=== PATIENT | male | born 1960 | race Caucasian/White ===

== ENCOUNTER → 2019-12-24 13:20 | Outpatient (BNVA) | payer OTHER, SELFPAY | PROVIDERS: PCP Family Medicine; Referring Provider Family Medicine; Visit Provider Urology | DX: Z76.89 Persons encountering health services in other specified circumstances (principal) ==

== ENCOUNTER → 2020-04-26 13:13 | Outpatient (BNVA) | payer OTHER, SELFPAY | PROVIDERS: PCP Family Medicine; Referring Provider Family Medicine; Visit Provider Urology | DX: N41.9 Inflammatory disease of prostate, unspecified (principal); N40.1 Benign prostatic hyperplasia with lower urinary tract symptoms; N13.8 Other obstructive and reflux uropathy | CPT/HCPCS: 51798; 81002 ==

== ENCOUNTER → 2020-05-02 13:11 | Outpatient (BNVA) | payer OTHER, SELFPAY | PROVIDERS: PCP Family Medicine; Visit Provider Urology ==

== ENCOUNTER → 2021-11-14 10:58 | Outpatient (BNVA) | payer OTHER, SELFPAY | PROVIDERS: PCP Family Medicine; Visit Provider Urology | DX: N40.1 Benign prostatic hyperplasia with lower urinary tract symptoms (principal); N13.8 Other obstructive and reflux uropathy; N41.9 Inflammatory disease of prostate, unspecified | CPT/HCPCS: 51798 ==

== ENCOUNTER 2022-11-19 11:30 | Outpatient (AMB) | payer OTHER, SELFPAY ==
--- NOTE | 2022-11-19 11:40 | A.OFFVIS_ITS ---
Intake Intake Visit Reasons: 1Y PVR Intake Note: Patient is present for PVR Urology Med: alfuzosin Antibiotic Allergy:None Blood Thinner: None Pharmacy: [facility] PVR: 0 Allergies No Known Allergies Allergy (Verified 11/19/22 11:44) Medication List - Last Reconciled 11/19/22 by Andrew Baeza MD alfuzosin ER 10 mg PO DAILY 90 days lovastatin mg PO methylprednisolone 16 mg PO DAILY metoprolol succinate ER 25 mg PO DAILY metronidazole 500 mg PO BID 7 days sertraline 50 mg PO DAILY tadalafil 5 mg PO DAILY 90 days HPI HPI Comments History of Present Illness Details Cong is a pleasant Malay male. He is a patient of Dr. Lo. He seen for following urologic conditions - prostatitis - lower urinary tract symptoms - erectile dysfunction Continues with relatively good bladder emptying Happy with alfuzosin No recurrence of prostatitis Erectile dysfunction Does have mild cardiac CAD Trial Cialis Prostatitis/CPPS: Here for follow-up Prior therapy for pelvic floor therapy notes from [facility]. Complicated patient Prior treatment for Trichomonas with metronidazole Prior Microgen negative They present for evaluation of, chronic prostatitis, chronic pelvic pain syndrome - started January 2019 - has been through multiple rounds of antibiotics - pain towards penile glans. He is currently being treated with antibiotics. Symptoms have been present Initial episode started January 2019 Does report having had an episode in his 20s. Severity of the symptom Prostate Symptom Score, moderate, have been intermittent, and are progressive. Pain is present perineum, with ejaculation. Prostatitis was diagnosed January 2019. Type of prostatitis II - chronic bacterial. [facility] Medical History Chronic prostatitis Bladder outlet obstruction Review of Systems Const Denies chills and Denies fever(s) Card Reports no additional complaints and Denies syncope Resp Denies cough GI Denies abdominal pain and Denies heartburn Reports as per HPI and Denies change in libido Neuro Denies syncope Psych Denies change in libido Endo Denies change in libido Physical Exam Const General: cooperative, healthy appearing, comfortable and no acute distress Orientation/consciousness: patient oriented x3 HEENT Face and sinus: Yes normal facial exam Mouth: moist mucous membranes Neck Neck: Yes normal visual inspection, Yes full ROM and Yes trachea midline Chest Chest palpation & inspection: normal inspection of the chest Resp Effort & Inspection: normal respiratory effort, able to speak in complete sentences and no respiratory distress GI Inspection: Yes normal to inspection Back/Spine/Pelvis Cervical Spine: normal cervical lordosis Thoracic/Lumbar Spine: thoracic and lumbar spine normal to inspection Skin General skin exam: no rashes or lesions noted Neuro General: patient oriented x3, gait normal, tone normal and moves all extremities Extrem General: Yes normal to inspection and Yes capillary refill normal Results AMB Urinalysis, Automated UA Leukoctes 0 Lamar/uL Last Edit by Katelynn Arrieta [facility] on 11/19/22 11:56 UA Nitrite Negative Last Edit by Katelynn Arrieta A on 11/19/22 11:56 UA Urobilinogen 0.2 mg/dL Last Edit by Katelynn Arrieta A on 11/19/22 11:5 6 UA Protein 0 mg/dL Last Edit by Katelynn Arrieta A on 11/19/22 11:56 UA pH 5.5 Last Edit by Katelynn Arrieta [facility] on 11/19/22 11:56 UA Blood 0 Luis Manuel/uL Last Edit by Katelynn Arrieta [facility] on 11/19/22 11:56 UA Specific Marion 1.025 Last Edit by Katelynn Arrieta [facility] on 11/19/22 11: 56 UA Ketone Negative Last Edit by Katelynn Arrieta [facility] on 11/19/22 11:56 UA Bilirubin 0 mg/dL Last Edit by Katelynn Arrieta A on 11/19/22 11:56 UA Glucose 0 mg/dL Last Edit by Katelynn Arrieta [facility] on 11/19/22 11:56 Results Reviewed Results Reviewed: Laboratory Last Values Urine pH (Auto) 5.5 11/19/22 11:44 Specific Marion (Auto) 1.025 11/19/22 11:44 Urine Protein (Auto) 0 mg/dL 11/19/22 11:44 Glucose (UA)(Auto) 0 mg/dL 11/19/22 11:44 Urine Ketones (Auto) Negative 11/19/22 11:44 Urine Blood (Auto) 0 Luis Manuel/uL 11/19/22 11:44 Urine Nitrite (Auto) Negative 11/19/22 11:44 Urine Bilirubin (Auto) 0 mg/dL 11/19/22 11:44 Urine Urobilinogen (Auto) 0.2 mg/dL 11/19/22 11:44 Leukocyte Esterase (Auto) 0 Lamar/uL 11/19/22 11:44 Assessment & Plan Assessment & Plan (1) Erectile dysfunction: Code(s): N52.9 - Male erectile dysfunction, unspecified Qualifiers: Erectile dysfunction type: vasculogenic Vasculogenic erectile dysfunction type: due to arterial insufficiency Qualified Code(s): N52.01 - Erectile dysfunction due to arterial insufficiency (2) BPH w urinary obs/LUTS: Code(s): N40.1 - Benign prostatic hyperplasia with lower urinary tract symptoms; N13.8 - Other obstructive and reflux uropathy (3) Prostatitis: Code(s): N41.9 - Inflammatory disease of prostate, unspecified Qualifiers: Prostatitis type: chronic Qualified Code(s): N41.1 - Chronic prostatitis Plan Trial daily tadalafil Encourage activity Orders: Orders AMB Urinalysis Automated Today Z13.9 - Encounter for screening, unspecified AMB Post Void Residual by ultrasound Today N13.8 - Other obstructive and reflux uropathy, N40.1 - Benign prostatic hyperplasia with lower urinary tract symptoms Medications: New tadalafil BIN [id number] [facility] Group DR33 5 mg PO DAILY 90 days 90 tabs 0RF sexual activity N52.9 - Male erectile dysfunction, unspecified Patient Instructions: Imaging studies, laboratory and physical exam results were discussed and reviewed in detail. No major barriers to patient understanding were identified. An opportunity to ask questions regarding the treatment plan was provided. All questions were answered. The patient expressed understanding and agreement with the above treatment plan. The patient is aware they should contact our office by phone for worsening of their current condition or the appearance of new urologic symptoms. Compliance is encouraged with any medications and followup testing that is ordered. It is a privilege to participate in the urologic care of your patient. If you have any questions or concerns regarding treatment for the above conditions, or other urologic issues, please do not hesitate to contact me. The office telephone contact is [phone]. This note is constructed using voice recognition software. While every effort has been made to ensure accuracy manager specialty errors may have been included. Yours sincerely, Dr Andrew Baeza MD, [facility] - Urology Providers of Expert, Compassionate Care for the Genitourinary System Coding Level of Care Code Est Pt Level 4 (85420) Diagnoses Erectile dysfunction due to arterial insufficiency N52.01 Erectile dysfunction type: vasculogenic Vasculogenic erectile dysfunction type: due to arterial insufficiency BPH w urinary obs/LUTS N40.1; N13.8 Chronic prostatitis N41.1 Prostatitis type: chronic
== END 2022-11-19 12:24 | disposition home or self-care (01) ==
PROVIDERS: PCP Family Medicine; Visit Provider Urology
DX: N52.01 Erectile dysfunction due to arterial insufficiency (principal); N40.1 Benign prostatic hyperplasia with lower urinary tract symptoms; N13.8 Other obstructive and reflux uropathy; N41.1 Chronic prostatitis; Z13.9 Encounter for screening, unspecified
CPT/HCPCS: 99214

== ENCOUNTER → 2022-11-19 11:30 | Outpatient (BNVA) | payer OTHER, SELFPAY | PROVIDERS: Visit Provider Urology | DX: N40.1 Benign prostatic hyperplasia with lower urinary tract symptoms (principal); N13.8 Other obstructive and reflux uropathy; N52.01 Erectile dysfunction due to arterial insufficiency; N41.1 Chronic prostatitis | CPT/HCPCS: 81003 ==

== ENCOUNTER 2023-02-21 11:19 | Outpatient (AMB) | payer OTHER, SELFPAY ==
--- NOTE | 2023-02-21 11:30 | MHC.OFFVIS ---
Intake Intake Visit Reasons: 3 month follow up Intake Note: Patient is Present for Follow Up Urology Medication: Alfuzosin, Tadalafil Antibiotic Allergies: None Blood Thinners:None Allergies No Known Allergies Allergy (Verified 02/21/23 11:31) Medication List - Last Reconciled 02/21/23 by Andrew Baeza MD alfuzosin ER 10 mg PO DAILY 90 days lovastatin mg PO methylprednisolone 16 mg PO DAILY metoprolol succinate ER 25 mg PO DAILY metronidazole 500 mg PO BID 7 days sertraline 50 mg PO DAILY tadalafil 5 mg PO DAILY 90 days HPI HPI Comments History of Present Illness Details Cong is a pleasant [place] male. He is a patient of Dr. Lo. He seen for following urologic conditions - prostatitis - lower urinary tract symptoms - erectile dysfunction Telemedicine Evaluation 15 min Consultation [employer] Any Video attempted Continues with relatively good bladder emptying Happy with alfuzosin No recurrence of prostatitis Erectile dysfunction Does have mild cardiac CAD Trial Cialis daily with on demand Prostatitis/CPPS: Here for follow-up Prior therapy for pelvic floor therapy notes from [facility]. Complicated patient Prior treatment for Trichomonas with metronidazole Prior Microgen negative They present for evaluation of, chronic prostatitis, chronic pelvic pain syndrome - started January 2019 - has been through multiple rounds of antibiotics - pain towards penile glans. He is currently being treated with antibiotics. Symptoms have been present Initial episode started January 2019 Does report having had an episode in his 20s. Severity of the symptom Prostate Symptom Score, moderate, have been intermittent, and are progressive. Pain is present perineum, with ejaculation. Prostatitis was diagnosed January 2019. Type of prostatitis II - chronic bacterial. [facility] Medical History Chronic prostatitis Bladder outlet obstruction Review of Systems Const All systems reviewed & are unremarkable except as noted in HPI and below Reports no additional complaints Resp Reports no additional complaints GI Reports no additional complaints Reports as per HPI Musc Reports no additional complaints Physical Exam Telemedicine evaluation Appropriate responses Regular breathing rate and rhythm HEENT Head: Yes normal to inspection Ears: hearing grossly normal bilaterally Eyes General: appearance normal, both eyes and all related structures Neck Neck: Yes normal visual inspection Chest Chest palpation & inspection: normal inspection of the chest Resp Effort & Inspection: normal respiratory effort and able to speak in complete sentences Assessment & Plan Assessment & Plan (1) Erectile dysfunction: Code(s): N52.9 - Male erectile dysfunction, unspecified Qualifiers: Erectile dysfunction type: vasculogenic Vasculogenic erectile dysfunction type: due to arterial insufficiency Qualified Code(s): N52.01 - Erectile dysfunction due to arterial insufficiency (2) BPH w urinary obs/LUTS: Code(s): N40.1 - Benign prostatic hyperplasia with lower urinary tract symptoms; N13.8 - Other obstructive and reflux uropathy (3) Prostatitis: Code(s): N41.9 - Inflammatory disease of prostate, unspecified Qualifiers: Prostatitis type: chronic Qualified Code(s): N41.1 - Chronic prostatitis Plan Six month follow-up office Medications: New tadalafil as needed 10 mg PO ONCE PRN 30 tabs 1RF sexual activity 30 days N52.01 - Erectile dysfunction due to arterial insufficiency, N52.9 - Male erectile dysfunction, unspecified Patient Instructions: Imaging studies, laboratory and physical exam results were discussed and reviewed in detail. No major barriers to patient understanding were identified. An opportunity to ask questions regarding the treatment plan was provided. All questions were answered. The patient expressed understanding and agreement with the above treatment plan. The patient is aware they should contact our office by phone for worsening of their current condition or the appearance of new urologic symptoms. Compliance is encouraged with any medications and followup testing that is ordered. It is a privilege to participate in the urologic care of your patient. If you have any questions or concerns regarding treatment for the above conditions, or other urologic issues, please do not hesitate to contact me. The office telephone contact is [phone]. This note is constructed using voice recognition software. While every effort has been made to ensure accuracy sugar house supervisor errors may have been included. Yours sincerely, Dr Andrew Baeza MD, [facility] - Urology Providers of Expert, Compassionate Care for the Genitourinary System Telehealth Telehealth Location of provider rendering services: practice address Location of patient: address on file Patient Identification confirmed using: Name, : Yes Telehealth method: voice only Patient verbally consented to treatment: Yes Patient verbally consented to billing insurance company: Yes Patient informed of any privacy concerns related to visit: Yes Coding Level of Care Code Tele Est Pt Level 4 (69990) Diagnoses Erectile dysfunction due to arterial insufficiency N52.01 Erectile dysfunction type: vasculogenic Vasculogenic erectile dysfunction type: due to arterial insufficiency BPH w urinary obs/LUTS N40.1; N13.8 Chronic prostatitis N41.1 Prostatitis type: chronic
== END 2023-02-21 12:16 | disposition home or self-care (01) ==
LOC: HO.HUSH 11:19
PROVIDERS: PCP Family Medicine; Visit Provider Urology
DX: N52.01 Erectile dysfunction due to arterial insufficiency (principal); N40.1 Benign prostatic hyperplasia with lower urinary tract symptoms; N13.8 Other obstructive and reflux uropathy; N41.1 Chronic prostatitis
CPT/HCPCS: 99214

== ENCOUNTER → 2023-02-21 11:19 | Outpatient (BNVA) | payer OTHER, SELFPAY | PROVIDERS: PCP Family Medicine; Visit Provider Urology ==

== ENCOUNTER 2023-08-26 11:42 | Outpatient (AMB) | payer OTHER, SELFPAY ==
--- NOTE | 2023-08-26 11:38 | A.OFFVIS_ITS ---
Intake Visit Reasons: 6m follow up Intake Note: Patient is present for 6 month f/u Urology Medication:tadalafil,metronidazole,methylprednisolone,alfuzosin Antibiotic Allergy:none Blood Thinner:none Bull Float Finisher Required: No Allergies No Known Allergies Allergy (Verified 08/26/23 11:40) Medication List - Last Reconciled 08/26/23 by Andrew Baeza MD alfuzosin ER 10 mg PO DAILY 90 days lovastatin mg PO methylprednisolone 16 mg PO DAILY metoprolol succinate ER 25 mg PO DAILY metronidazole 500 mg PO BID 7 days sertraline 50 mg PO DAILY tadalafil 10 mg PO ONCE PRN 30 days tadalafil 5 mg PO DAILY 90 days HPI Comments Details: Cong is a pleasant Mongolian male. He is a patient of Dr. Lo. He seen for following urologic conditions - prostatitis - lower urinary tract symptoms - erectile dysfunction Telemedicine Evaluation 15 min Consultation [employer] Any Video Continues with relatively good bladder emptying Happy with alfuzosin Erectile dysfunction - good response to daily Cialis Six-month follow-up PSA office Lower urinary tract symptoms On alfuzosin with effective bladder emptying Prostatitis/CPPS: Here for follow-up Prior therapy for pelvic floor therapy notes from [facility]. Complicated patient Prior treatment for Trichomonas with metronidazole Prior Microgen negative They present for evaluation of, chronic prostatitis, chronic pelvic pain syndrome - started January 2019 - has been through multiple rounds of antibiotics - pain towards penile glans. He is currently being treated with antibiotics. Symptoms have been present Initial episode started January 2019 Does report having had an episode in his 20s. Severity of the symptom Prostate Symptom Score, moderate, have been intermittent, and are progressive. Pain is present perineum, with ejaculation. Prostatitis was diagnosed January 2019. Type of prostatitis II - chronic bacterial. [facility] Medical History Chronic prostatitis Bladder outlet obstruction Review of Systems Const All systems reviewed & are unremarkable except as noted in HPI and below Reports no additional complaints Resp Reports no additional complaints GI Reports no additional complaints Reports as per HPI Musc Reports no additional complaints Physical Exam Telemedicine evaluation Appropriate responses Regular breathing rate and rhythm HEENT Head: Yes normal to inspection Ears: hearing grossly normal bilaterally Eyes General: appearance normal, both eyes and all related structures Neck Neck: Yes normal visual inspection Chest Chest palpation & inspection: normal inspection of the chest Resp Effort & Inspection: normal respiratory effort and able to speak in complete sentences Telehealth Telehealth Telehealth Platform: Funding Profiles Location of provider rendering services: practice address Location of patient: address on file Patient Identification confirmed using: Name, : Yes Telehealth method: video Patient verbally consented to treatment: Yes Patient verbally consented to billing insurance company: Yes Patient informed of any privacy concerns related to visit: Yes Minutes spent on Phone/Video with Pt.: 15 Assessment & Plan Assessment & Plan (1) Erectile dysfunction: Code(s): N52.9 - Male erectile dysfunction, unspecified Category: Medical Qualifiers: Erectile dysfunction type: vasculogenic Vasculogenic erectile dysf unction type: due to arterial insufficiency Qualified Code(s): N52.01 - Erectile dysfunction due to arterial insufficiency (2) BPH w urinary obs/LUTS: Code(s): N40.1 - Benign prostatic hyperplasia with lower urinary tract symptoms; N13.8 - Other obstructive and reflux uropathy Category: Medical (3) Prostatitis: Code(s): N41.9 - Inflammatory disease of prostate, unspecified Category: Medical Qualifiers: Prostatitis type: chronic Qualified Code(s): N41.1 - Chronic prostatitis Plan Refill medications Orders: Orders Prostate Specific Antigen 6 Months N13.8 - Other obstructive and reflux uropathy, N40.1 - Benign prostatic hyperplasia with lower urinary tract symptoms Medications: Changed From tadalafil BIN [id number] [facility] Group DR33 5 mg PO DAILY 90 days 90 tabs 1RF sexual activity N 52.9 - Male erectile dysfunction, unspecified To tadalafil 5 mg PO DAILY 90 days 90 tabs 2RF sexual activity N52.9 - Male erectile dysfunction, unspecified Refilled alfuzosin ER administer after the same meal each day 10 mg PO DAILY 90 days 90 tabs 3RF N41.9 - Inflammatory disease of prostate, unspecified tadalafil BIN [id number] [facility] Group DR33 5 mg PO DAILY 90 days 90 tabs 1RF sexual activity N52.9 - Male erectile dysfunction, unspecified alfuzosin ER administer after the same meal each day 10 mg PO DAILY 90 days 90 tabs 3RF N41.9 - Inflammatory disease of prostate, unspecified Patient Instructions: Imaging studies, laboratory and physical exam results were discussed and reviewed in detail. No major barriers to patient understanding were identified. An opportunity to ask questions regarding the treatment plan was provided. All questions were answered. The patient expressed understanding and agreement with the above treatment plan. The patient is aware they should contact our office by phone for worsening of their current condition or the appearance of new urologic symptoms. Compliance is encouraged with any medications and followup testing that is ordered. It is a privilege to participate in the urologic care of your patient. If you have any questions or concerns regarding treatment for the above conditions, or other urologic issues, please do not hesitate to contact me. The office telephone contact is [phone]. This note is constructed using voice recognition software. While every effort has been made to ensure accuracy computer installer errors may have been included. Yours sincerely, Dr Andrew Baeza MD, [facility] - Urology Providers of Expert, Compassionate Care for the Genitourinary System Coding Level of Care Code Tele Est Pt Level 3 (12973) Diagnoses Erectile dysfunction due to arterial insufficiency N52.01 Erectile dysfunction type: vasculogenic Vasculogenic erectile dysfunction type: due to arterial insufficiency BPH w urinary obs/LUTS N40.1; N13.8 Chronic prostatitis N41.1 Prostatitis type: chronic
== END 2023-08-26 12:19 | disposition home or self-care (01) ==
LOC: HO.HUSH 11:42
PROVIDERS: PCP Family Medicine; Visit Provider Urology
DX: N52.01 Erectile dysfunction due to arterial insufficiency (principal); N40.1 Benign prostatic hyperplasia with lower urinary tract symptoms; N13.8 Other obstructive and reflux uropathy; N41.1 Chronic prostatitis
CPT/HCPCS: 99213

== ENCOUNTER → 2023-08-26 11:42 | Outpatient (BNVA) | payer OTHER, SELFPAY | PROVIDERS: PCP Family Medicine; Visit Provider Urology ==

== ENCOUNTER 2024-03-24 15:05 | Outpatient (AMB) | payer OTHER, SELFPAY ==
--- NOTE | 2024-03-24 15:09 | A.OFFVIS_ITS ---
Intake Visit Reasons: PSA/PVR(Set) Intake Note: Patient is present for PSA/PVR Urology Medication:TADALAFIL,ALFUZOSIN Antibiotic Allergy:NONE Blood Thinner:NONE Todays PVR:0ML'S Cpr Instructor Required: No Allergies No Known Allergies Allergy (Verified 03/24/24 15:10) HPI Comments Details: Cong is a pleasant Spanish male. He is a patient of Dr. Lo. He seen for following urologic conditions - prostatitis - lower urinary tract symptoms - erectile dysfunction Six-month follow-up Low PVR Remains on combination of alfuzosin and Cialis Erectile dysfunction - good response to daily Cialis PSA 0.8 12 month follow-up Lower urinary tract symptoms On alfuzosin with effective bladder emptying Prostatitis/CPPS: Here for follow-up Prior therapy for pelvic floor therapy notes from [facility]. Complicated patient Prior treatment for Trichomonas with metronidazole Prior Microgen negative They present for evaluation of, chronic prostatitis, chronic pelvic pain syndrome - started January 2019 - has been through multiple rounds of antibiotics - pain towards penile glans. He is currently being treated with antibiotics. Symptoms have been present Initial episode started January 2019 Does report having had an episode in his 20s. Severity of the symptom Prostate Symptom Score, moderate, have been intermittent, and are progressive. Pain is present perineum, with ejaculation. Prostatitis was diagnosed January 2019. Type of prostatitis II - chronic bacterial. [facility] Medical History Chronic prostatitis Bladder outlet obstruction Review of Systems Const Denies chills and Denies fever(s) Card Reports no additional complaints and Denies syncope Resp Denies cough GI Denies abdominal pain and Denies heartburn Reports as per HPI and Denies change in libido Neuro Denies syncope Psych Denies change in libido Endo Denies change in libido Physical Exam Const General: cooperative, healthy appearing, comfortable and no acute distress Orientation/consciousness: patient oriented x3 HEENT Face and sinus: Yes normal facial exam Mouth: moist mucous membranes Neck Neck: Yes normal visual inspection, Yes full ROM and Yes trachea midline Chest Chest palpation & inspection: normal inspection of the chest Resp Effort & Inspection: normal respiratory effort, able to speak in complete sentences and no respiratory distress GI Inspection: Yes normal to inspection Back/Spine/Pelvis Cervical Spine: normal cervical lordosis Thoracic/Lumbar Spine: thoracic and lumbar spine normal to inspection Skin General skin exam: no rashes or lesions noted Neuro General: patient oriented x3, gait normal, tone normal and moves all extremities Extrem General: Yes normal to inspection and Yes capillary refill normal Office Procedures Post Void Residual Post Residual Void Post Void Residual (PVR): 0 80633-Rdof Void Residual by ultrasound Results AMB Urinalysis, Automated UA Leukoctes 0 Lamar/uL Last Edit by ALBIN Boo on 03/24/24 15:36 UA Nitrite Negative Last Edit by Vijaya Mercado [facility] on 03/24/24 15:36 UA Urobilinogen 0.2 mg/dL Last Edit by ALBIN Boo on 03/24/24 15:3 6 UA Protein 15 mg/dL Last Edit by Vijaya Mercado [facility] on 03/24/24 15:36 UA pH 5.5 Last Edit by Vijaya Mercado [facility] on 03/24/24 15:36 UA Blood 0 Luis Manuel/uL Last Edit by Vijaya Mercado [facility] on 03/24/24 15:36 UA Specific [place] 1.025 Last Edit by Vijaya Mercado [facility] on 03/24/24 15: 36 UA Ketone Negative Last Edit by ALBIN Boo on 03/24/24 15:36 UA Bilirubin 0 mg/dL Last Edit by Vijaya Mercado [facility] on 03/24/24 15:36 UA Glucose 0 mg/dL Last Edit by Vijaya Mercado [facility] on 03/24/24 15:36 Results Reviewed Results Reviewed: Laboratory Last Values Urine pH (Auto) 5.5 03/24/24 15:35 Specific [place] (Auto) 1.025 03/24/24 15:35 Urine Protein (Auto) 15 mg/dL 03/24/24 15:35 Glucose (UA)(Auto) 0 mg/dL 03/24/24 15:35 Urine Ketones (Auto) Negative 03/24/24 15:35 Urine Blood (Auto) 0 Luis Manuel/uL 03/24/24 15:35 Urine Nitrite (Auto) Negative 03/24/24 15:35 Urine Bilirubin (Auto) 0 mg/dL 03/24/24 15:35 Urine Urobilinogen (Auto) 0.2 mg/dL 03/24/24 15:35 Leukocyte Esterase (Auto) 0 Lamar/uL 03/24/24 15:35 Assessment & Plan Assessment & Plan (1) Erectile dysfunction: Code(s): N52.9 - Male erectile dysfunction, unspecified Category: Medical Qualifiers: Erectile dysfunction type: vasculogenic Vasculogenic erectile dysfunction type: due to arterial insufficiency Qualified Code(s): N52.01 - Erectile dysfunction due to arterial insufficiency (2) BPH w urinary obs/LUTS: Code(s): N40.1 - Benign prostatic hyperplasia with lower urinary tract symptoms; N13.8 - Other obstructive and reflux uropathy Category: Medical (3) Prostatitis: Code(s): N41.9 - Inflammatory disease of prostate, unspecified Category: Medical Qualifiers: Prostatitis type: chronic Qualified Code(s): N41.1 - Chronic prostatitis Plan One year follow-up Orders: Orders AMB Urinalysis Automated Today Z13.9 - Encounter for screening, unspecified Medications: Changed From tadalafil 5 mg PO DAILY 90 days 90 tabs 1RF sexual activity N52.9 - Male erectile dysfunction, unspecified To tadalafil aly patient 5 mg PO DAILY 90 days 90 tabs 3RF sexual activity N52.9 - Male erectile dysfunction, unspecified Refilled alfuzosin ER administer after the same meal each day 10 mg PO DAILY 90 days 90 tabs 3RF N41.9 - Inflammatory disease of prostate, unspecified Patient Instructions: Imaging studies, laboratory and physical exam results were discussed and reviewed in detail. No major barriers to patient understanding were identified. An opportunity to ask questions regarding the treatment plan was provided. All questions were answered. The patient expressed understanding and agreement with the above treatment plan. The patient is aware they should contact our office by phone for worsening of their current condition or the appearance of new urologic symptoms. Compliance is encouraged with any medications and followup testing that is ordered. It is a privilege to participate in the urologic care of your patient. If you have any questions or concerns regarding treatment for the above conditions, or other urologic issues, please do not hesitate to contact me. The office telephone contact is [phone]. This note is constructed using voice recognition software. While every effort has been made to ensure accuracy brimmer blocker errors may have been included. Yours sincerely, Dr Andrew Baeza MD, [facility] - Urology Providers of Expert, Compassionate Care for the Genitourinary System Coding Level of Care Code Est Pt Level 4 (18812) Diagnoses Erectile dysfunction due to arterial insufficiency N52.01 Erectile dysfunction type: vasculogenic Vasculogenic erectile dysfunction type: due to arterial insufficiency BPH w urinary obs/LUTS N40.1; N13.8 Chronic prostatitis N41.1 Prostatitis type: chronic CPT Codes Post Residual Void - PVR CPT Code: 21718-Crqi Void Residual by ultrasound ([id number])
== END 2024-03-24 16:23 | disposition home or self-care (01) ==
PROVIDERS: PCP Family Medicine; Visit Provider Urology
DX: N52.01 Erectile dysfunction due to arterial insufficiency (principal); N40.1 Benign prostatic hyperplasia with lower urinary tract symptoms; N13.8 Other obstructive and reflux uropathy; N41.1 Chronic prostatitis; Z13.9 Encounter for screening, unspecified
CPT/HCPCS: 99214

== ENCOUNTER → 2024-03-24 15:05 | Outpatient (BNVA) | payer OTHER, SELFPAY | PROVIDERS: PCP Family Medicine; Visit Provider Urology | DX: N52.01 Erectile dysfunction due to arterial insufficiency (principal); N40.1 Benign prostatic hyperplasia with lower urinary tract symptoms; N13.8 Other obstructive and reflux uropathy; N41.1 Chronic prostatitis | CPT/HCPCS: 51798; 81003 ==

== ENCOUNTER 2024-10-08 15:07 | Outpatient (AMB) | payer OTHER, SELFPAY ==
--- NOTE | 2024-10-08 15:12 | MHC.OFFVIS ---
Intake Visit Reasons: intermittent testicular pain Intake Note: Patient is present for new c/o intermittent testicular pain Urology Medication:TADALAFIL,ALFUZOSIN Antibiotic Allergy:NONE Blood Thinner:NONE Commodity Analyst Required: No Accompanied by: Self / Same As Patient Allergies No Known Allergies Allergy (Verified 10/08/24 15:12) HPI Comments Details: Cong is a pleasant Urdu male. He is a patient of Dr. Lo. He seen for following urologic conditions - prostatitis - lower urinary tract symptoms - erectile dysfunction Last seen March Remains on combination of alfuzosin and Cialis Erectile dysfunction - good response to daily Cialis PSA 0.8 Has had episode of right-sided epididymitis On exam has pain at head of epididymis Did respond to higher dose nonsteroidals Prescription for 30 days Mobic provided He showed me photos of his trip to [place] Lower urinary tract symptoms On alfuzosin with effective bladder emptying Prostatitis/CPPS: Here for follow-up Prior therapy for pelvic floor therapy notes from [facility]. Complicated patient Prior treatment for Trichomonas with metronidazole Prior Microgen negative They present for evaluation of, chronic prostatitis, chronic pelvic pain syndrome - started January 2019 - has been through multiple rounds of antibiotics - pain towards penile glans. He is currently being treated with antibiotics. Symptoms have been present Initial episode started January 2019 Does report having had an episode in his 20s. Severity of the symptom Prostate Symptom Score, moderate, have been intermittent, and are progressive. Pain is present perineum, with ejaculation. Prostatitis was diagnosed January 2019. Type of prostatitis II - chronic bacterial. [facility] Medical History Chronic prostatitis Bladder outlet obstruction Review of Systems Const Denies chills and Denies fever(s) Card Reports no additional complaints and Denies syncope Resp Denies cough GI Denies abdominal pain and Denies heartburn Reports as per HPI and Denies change in libido Neuro Denies syncope Psych Denies change in libido Endo Denies change in libido Physical Exam Const General: cooperative, healthy appearing, comfortable and no acute distress Orientation/consciousness: patient oriented x3 HEENT Face and sinus: Yes normal facial exam Mouth: moist mucous membranes Neck Neck: Yes normal visual inspection, Yes full ROM and Yes trachea midline Chest Chest palpation & inspection: normal inspection of the chest Resp Effort & Inspection: normal respiratory effort, able to speak in complete sentences and no respiratory distress GI Inspection: Yes normal to inspection Back/Spine/Pelvis Cervical Spine: normal cervical lordosis Thoracic/Lumbar Spine: thoracic and lumbar spine normal to inspection Skin General skin exam: no rashes or lesions noted Neuro General: patient oriented x3, gait normal, tone normal and moves all extremities Extrem General: Yes normal to inspection and Yes capillary refill normal Assessment & Plan Assessment & Plan (1) Epididymitis: Code(s): N45.1 - Epididymitis Category: Medical Plan Keep follow-up in March Medications: New meloxicam 15 mg PO DAILY 30 tabs 0RF 30 days N45.1 - Epididymitis, R10.31 - Right lower quadrant pain, R10.32 - Left lower quadrant pain Patient Instructions: This note is constructed using voice recognition software. While every effort has been made to ensure accuracy power reactor supervisor errors may have been included. Imaging studies, laboratory and physical exam results were discussed and reviewed in detail. No major barriers to patient understanding were identified. An opportunity to ask questions regarding the treatment plan was provided. All questions were answered. The patient expressed understanding and agreement with the above treatment plan. The patient is aware they should contact our office by phone for worsening of their current condition or the appearance of new urologic symptoms. Compliance is encouraged with any medications and followup testing that is ordered. It is a privilege to participate in the urologic care of your patient. If you have any questions or concerns regarding treatment for the above conditions, or other urologic issues, please do not hesitate to contact me. The office telephone contact is [phone]. Sincerely, Dr Andrew Baeza MD, [facility] - Urology Compassionate Specialist Care for the Genitourinary System Coding Level of Care Code Est Pt Level 4 (15780) Diagnoses Epididymitis N45.1
== END 2024-10-08 16:13 | disposition home or self-care (01) ==
LOC: HO.HUSH 15:08
PROVIDERS: PCP Family Medicine; Visit Provider Urology
DX: N45.1 Epididymitis (principal)
CPT/HCPCS: 99214